=== PATIENT | female | born 1945 | race Caucasian/White ===

== ENCOUNTER 2016-06-20 12:46 | Outpatient (RCR) | payer MEDICARE, OTHER ==
[2016-06-15] MEDS: ENOXAPARIN 100 MG/1 ML (LOVENOX) SYR SC SCH (17:38)
[2016-06-16] MEDS: ENOXAPARIN 100 MG/1 ML (LOVENOX) SYR SC SCH (12:40)
[2016-06-17] MEDS: ENOXAPARIN 100 MG/1 ML (LOVENOX) SYR SC SCH (09:00)
[2016-06-18] MEDS: ENOXAPARIN 100 MG/1 ML (LOVENOX) SYR SC SCH (12:56)
[2016-06-19] MEDS: ENOXAPARIN 100 MG/1 ML (LOVENOX) SYR SC SCH (12:45)
[~2016-06-20] VITALS: Ht 162.6 cm; Wt 72.1 kg
[~2016-06-20 12:46] MED LIST: CITA20TA12 PO; CPR500T PO; DNPZ10T PO; DOCU-243 PO; HYDR-3062 PO; MEMA10TA PO; NAPR220C11 PO; SIMV40TA2 PO; SMT80CT PO
[2016-06-20 13:07] VITALS: BP 137/65
[2016-06-20] MEDS: ENOXAPARIN 100 MG/1 ML (LOVENOX) SYR SC SCH (13:09)
[2016-06-28 15:51] LABS: ANION GAP 17.2 MEQ/L (3-15)
[2016-09-14] MEDS ORDERED: LEVO200T PO (12:18)
[2016-09-14] MEDS ORDERED: WARF5TAB6 PO (12:18)
[2016-09-14] MEDS ORDERED: CITA40TA5 PO (12:18)
[2016-09-14] MEDS ORDERED: WARF2.5T82 PO (12:18)
== END 2016-09-13 | disposition home or self-care (01) ==
PROVIDERS: ATTEND Family Medicine
DX: I82.B11 Acute embolism and thrombosis of right subclavian vein (principal); Z79.01 Long term (current) use of anticoagulants; R79.89 Other specified abnormal findings of blood chemistry
CPT/HCPCS: 36415; 80048; 85610; 96372; J1650

== ENCOUNTER 2016-07-01 11:43 | Outpatient (RCR) | payer MEDICARE, OTHER ==
[2016-07-13 17:03] LABS: ALBUMIN 3.7 g/dL (3.4-5.0); ANION GAP 13.4 MEQ/L (3-15); CALCULATED IONIZED CALCIUM 3.8 mg/dL (3.8-4.6); TOTAL PROTEIN 7.8 g/dL (6.4-8.5)
[2016-07-13 17:08] LABS: BASOPHILS % (AUTO) 1 % (0-2); EOSINOPHILS % (AUTO) 0 % (0-4); LYMPHOCYTES # (AUTO) 0.7 X10^3; MEAN CORPUSCULAR HEMOGLOBIN 29.2 PG (26.0-34.0); MEAN CORPUSCULAR HGB CONC 32.4 g/dL (31.0-37.0); MEAN CORPUSCULAR VOLUME 90 FL (80-100); MEAN PLATELET VOLUME 11.1 FL (6.0-9.5); MONOCYTES # (AUTO) 0.7 X10^3; MONOCYTES % (AUTO) 9 % (3-11); NEUTROPHILS # (AUTO) 6.2 X10^3; NEUTROPHILS % (AUTO) 80 % (51-67); PLATELET COUNT 271 10^3uL (150-450); WHITE BLOOD COUNT 7.68 10^3uL (4.0-11.0)
[2016-07-14 12:31] LABS: BILIRUBIN,URINE Negative (Negative); CLARITY,URINE Clear; GLUCOSE, URINE (UA) Negative (Negative); LEUKOCYTE ESTERASE ,URINE 1+ (Negative); PH,URINE 6.5 (5.0 - 8.0); UROBILINOGEN,URINE 0.2 mg/dL (0.2-1.0)
[2016-07-14 12:54] LABS: COLOR,URINE Dark Yellow
[2016-07-14 13:06] LABS: RBC,URINE 0-2 /HPF; URINE CENTRIFUGED VOLUME 12 mL
[2016-07-14 13:07] LABS: CALCIUM OXALATE CRYSTALS,UR 2+ /HPF
[2016-08-04 15:59] LABS: ANION GAP 14.6 MEQ/L (3-15)
[2016-09-03 12:38] LABS: BASOPHILS % (AUTO) 1 % (0-2); EOSINOPHILS % (AUTO) 0 % (0-4); LYMPHOCYTES # (AUTO) 0.8 X10^3; MEAN CORPUSCULAR HEMOGLOBIN 29.1 PG (26.0-34.0); MEAN CORPUSCULAR HGB CONC 33.7 g/dL (31.0-37.0); MEAN CORPUSCULAR VOLUME 86 FL (80-100); MEAN PLATELET VOLUME 9.9 FL (6.0-9.5); MONOCYTES # (AUTO) 0.4 X10^3; MONOCYTES % (AUTO) 7 % (3-11); NEUTROPHILS # (AUTO) 4.4 X10^3; NEUTROPHILS % (AUTO) 78 % (51-67); PLATELET COUNT 341 10^3uL (150-450); WHITE BLOOD COUNT 5.67 10^3uL (4.0-11.0)
[2016-09-03 13:17] LABS: ALBUMIN 3.7 g/dL (3.4-5.0); ANION GAP 13.3 MEQ/L (3-15)
== END 2016-09-29 | disposition home or self-care (01) ==
LOC: LAB 11:43
PROVIDERS: ATTEND Family Medicine
DX: Z51.81 Encounter for therapeutic drug level monitoring (principal); Z79.01 Long term (current) use of anticoagulants; E13.65 Other specified diabetes mellitus with hyperglycemia; D50.8 Other iron deficiency anemias; R79.89 Other specified abnormal findings of blood chemistry; E03.4 Atrophy of thyroid (acquired); R82.99 Other abnormal findings in urine
CPT/HCPCS: 36415; 80048; 80053; 81003; 81015; 83036; 84436; 84443; 85025; 85610; 87088

== ENCOUNTER → 2016-09-10 | Outpatient (REF) | payer MEDICARE, OTHER ==
[~2016-09-10] MED LIST changes: +CITA40TA5 PO; +LEVO200T PO; +WARF2.5T82 PO; +WARF5TAB6 PO
== END ==
LOC: LAB 19:40
PROVIDERS: ATTEND Family Medicine
DX: Z53.8 Procedure and treatment not carried out for other reasons (principal)

== ENCOUNTER → 2016-09-11 | Outpatient (CLI) | payer MEDICARE, OTHER ==
[2016-09-11 12:01] LABS: CLARITY,URINE Clear; COLOR,URINE Yellow; GLUCOSE, URINE (UA) Negative (Negative); LEUKOCYTE ESTERASE ,URINE 1+ (Negative); PH,URINE 5.5 (5.0 - 8.0); UROBILINOGEN,URINE 0.2 mg/dL (0.2-1.0)
[2016-09-11 12:02] LABS: BILIRUBIN,URINE 1+ (Negative)
[2016-09-11 12:16] LABS: RBC,URINE 50-100 /HPF; URINE CENTRIFUGED VOLUME 12 mL
== END ==
LOC: LAB 11:19
PROVIDERS: ATTEND Family Medicine
DX: N39.0 Urinary tract infection, site not specified (principal)
CPT/HCPCS: 81003; 81015; 87077; 87088; 87186

== ENCOUNTER → 2016-09-13 | Outpatient (CLI) | payer MEDICARE, OTHER ==
--- NOTE | 2016-09-13 16:48 | Diagnostic Imaging Report ---
INDICATION: Acute bronchitis. History of difficulty with swallowing. Most recently, in the last four days patient has been coughing up blood. The daughter states she chokes with liquids and food. Worse with thin liquids. EXAMINATION: Barium swallow 09/13/2016. FINDINGS: Attempted barium swallow was performed. Patient had difficulty standing for the procedure. Thin liquid was administered and patient had marked difficulty initiating swallow. Free spillage was seen into the pharyngeal recesses, which also demonstrated retention of the contrast in the pharyngeal recesses. Ventral spillage of contrast from the pharyngeal recesses is noted with at least penetration and aspiration difficult to exclude given patient was coughing and vomiting during imaging. Examination was then terminated. An abnormality more distally in the esophagus could not be evaluated. IMPRESSION: Difficult examination as described above with at least penetration if not aspiration. See above limitations. Poor swallowing mechanism also noted. Modified barium swallow with speech therapy recommended. Dr. Archer's office has been called by Dr. Sun on 09/13/2016. I spoke with Nadege in Gianni's office. Dictated by: Dictated on workstation # [id number]
--- NOTE | 2016-09-13 16:52 | Diagnostic Imaging Report ---
Indication: History of acute bronchitis and streptococcal pneumonia. Examination: Two-view chest 09/13/2016/ Comparison: 10/30/2015. Findings: 2 views of the chest There is elevation of the right hemidiaphragm. Bibasal atelectasis versus infiltrates noted. There are small bilateral pleural effusions. Linear markings seen throughout both lungs are noted consistent with atelectasis versus scar. Prominence of the right perihilar region is also noted and adenopathy or even infiltrate is not excluded. Impression: 1. Bibasilar infiltrate is suspected with small bilateral effusions also seen. 2. Prominence of the right perihilar region, see above discussion. 3. Diffuse other chronic changes, as discussed above. Dictated by: Dictated on workstation # [id number]
== END ==
LOC: RAD 10:44
PROVIDERS: ATTEND Family Medicine
DX: J20.2 Acute bronchitis due to streptococcus (principal)
CPT/HCPCS: 71020; 74220

== ENCOUNTER 2016-09-14 10:14 | Emergency (ER) | payer MEDICARE, OTHER ==
[~2016-09-14] VITALS: Ht 162.6 cm; Wt 60.4 kg
[2016-09-14] MEDS ORDERED: SODIUM CHLORIDE FLUSH 3 ML SYR IV PRN (11:00)
[2016-09-14] MEDS ORDERED: SODIUM CHLORIDE FLUSH 10 ML SYR IV PRN (11:00)
[2016-09-14] MEDS ORDERED: ONDANSETRON 2 MG/ML (Z0FRAN) 2 ML VIAL IV ONE ×2 (11:00→11:10)
[2016-09-14] MEDS ORDERED: HYDROmorphone 1 MG/ML (DILAUDID) SYRINGE IV ONE (11:10)
[2016-09-14 11:29] LABS: BASOPHILS % (AUTO) 1 % (0-2); EOSINOPHILS % (AUTO) 0 % (0-4); LYMPHOCYTES # (AUTO) 0.8 X10^3; MEAN CORPUSCULAR HEMOGLOBIN 28.8 PG (26.0-34.0); MEAN CORPUSCULAR HGB CONC 32.6 g/dL (31.0-37.0); MEAN CORPUSCULAR VOLUME 88 FL (80-100); MEAN PLATELET VOLUME 10.3 FL (6.0-9.5); MONOCYTES # (AUTO) 0.5 X10^3; MONOCYTES % (AUTO) 8 % (3-11); NEUTROPHILS # (AUTO) 5.2 X10^3; NEUTROPHILS % (AUTO) 79 % (51-67); PLATELET COUNT 338 10^3uL (150-450); WHITE BLOOD COUNT 6.54 10^3uL (4.0-11.0)
[2016-09-14 11:43] LABS: ALBUMIN 3.5 g/dL (3.4-5.0); ANION GAP 16.9 MEQ/L (3-15); CALCULATED IONIZED CALCIUM 3.9 mg/dL (3.8-4.6); TOTAL PROTEIN 7.2 g/dL (6.4-8.5)
[2016-09-14 11:49] LABS: CLARITY,URINE Clear; COLOR,URINE Yellow; GLUCOSE, URINE (UA) Negative (Negative); LEUKOCYTE ESTERASE ,URINE Negative (Negative); UROBILINOGEN,URINE 0.2 mg/dL (0.2-1.0)
[2016-09-14 11:55] LABS: BILIRUBIN,URINE 1+ (Negative)
[2016-09-14 11:57] LABS: URINE CENTRIFUGED VOLUME 10 mL
[2016-09-14 11:59] LABS: AMORPHOUS SEDIMENT,UR 2+ /HPF
[2016-09-14] MEDS ORDERED: PHYTONADIONE 10 MG/ML SC ONE (15:25)
[2016-09-14] MEDS ORDERED: ONDANSETRON 2 MG/ML (Z0FRAN) 2 ML VIAL ONE (15:32)
--- NOTE | 2016-09-14 16:14 | NUR ---
DR FREEMAN TALKS WITH DR OSORIO RE PT. CL
--- NOTE | 2016-09-14 16:33 | NUR ---
DR OSORIO IN WITH PT. CL
--- NOTE | 2016-09-14 16:50 | NUR ---
DR FREEMAN IS SPEAKING WITH THE HOSPITALIST AT [facility].
[2016-09-14] MEDS ORDERED: SODIUM CHLORIDE 250 ML ONE (18:03)
[2016-09-14 22:54] VITALS: BP 130/75
== END 2016-09-14 20:20 | disposition short-term general hospital (02) ==
LOC: ED 10:17
DX: R04.2 Hemoptysis (principal); D68.32 Hemorrhagic disorder due to extrinsic circulating anticoagulants; T45.515A Adverse effect of anticoagulants, initial encounter; R93.8 Abnormal findings on diagnostic imaging of other specified body structures
CPT/HCPCS: 36415; 36430; 51702; 70450; 70490; 71250; 74022; 74176; 80053; 81003; 81015; 82150; 82274; 83690; 85025; 85610; 85730; 86140; 86900; 86901; 86927; 96361; 96372; 96374; 96375; 99285; J1170; J2405; J3430; J7030; J7050; P9017; 99291

== ENCOUNTER → 2016-09-14 | Outpatient (CLI) | payer MEDICARE, OTHER | LOC: EMS 20:14 | PROVIDERS: ATTEND Family Medicine | DX: T45.511A Poisoning by anticoagulants, accidental (unintentional), initial encounter (principal); R04.2 Hemoptysis ==